=== PATIENT | female | born 1935 | race Caucasian/White ===

== ENCOUNTER 2018-01-10 15:35 | Inpatient (IN) | payer OTHER ==
[2018-01-10] MEDS ORDERED: TUSSIONEX PENNKINETIC SUSP PO PRN (17:14)
[2018-01-10 18:58] LABS: BASOPHILS # (AUTO) 0.1 X10^3/uL (0.0-0.1); BASOPHILS % (AUTO) 1.1 % (0.2-1.0); EOSINOPHILS # (AUTO) 0.2 x10^3/uL (0.0-0.2); EOSINOPHILS % (AUTO) 3.3 % (0.9-2.9); HEMATOCRIT 34.4 % (36.0-47.0); HEMOGLOBIN 11.9 g/dL (12.0-16.0); LYMPHOCYTES # (AUTO) 1.5 X10^3/uL (1.3-2.9); LYMPHOCYTES % (AUTO) 22.4 % (21.0-51.0); MEAN CORPUSCULAR HEMOGLOBIN 31.2 pg (27.0-34.0); MEAN CORPUSCULAR HGB CONC 34.6 g/dL (33.0-35.0); MEAN PLATELET VOLUME 7.5 fL (7.4-11.0); MONOCYTES # (AUTO) 0.5 x10^3/uL (0.3-0.8); MONOCYTES % (AUTO) 7.7 % (0.0-13.0); NEUTROPHILS # (AUTO) 4.5 x10^3/uL (2.2-4.8); NEUTROPHILS % (AUTO) 65.5 % (42.0-75.0); PLATELET COUNT 273 X10^3/uL (150.0-450.0); RED BLOOD COUNT 3.82 X10^6/uL (3.5-5.4); RED CELL DISTRIBUTION WIDTH 13.2 % (11.6-16.5); WHITE BLOOD COUNT 6.8 X10^3/uL (3.6-10.0)
[2018-01-10 19:12] LABS: CALCIUM 9.1 mg/dL (8.5-10.1); CARBON DIOXIDE 27.8 mmol/L (21-32); COR CA(FOR HYPOALB) 9.9 mg/dL (8.5-10.1); CREATININE 1.44 mg/dL (0.55-1.02); TOTAL PROTEIN 7.3 g/dL (6.4-8.2)
[2018-01-10 19:18] VITALS: BMI 47.7
[2018-01-10] MEDS ORDERED: NS 1/2 1000 ML IV 1,000 ML IV ONE (19:44)
[2018-01-10] MEDS ORDERED: LEVAQUIN PREMIX IV 250 MG 250 MG/50 ML BAG IV SCH (21:00)
[2018-01-10] MEDS: NS 1/2 1000 ML IV 1,000 ML IV SCH (21:21)
[2018-01-10] MEDS: COLACE CAP 100 MG PO SCH (21:22)
[2018-01-10] MEDS: ROBITUSSIN DM PO SCH (21:22)
[2018-01-10] MEDS: MILK OF MAGNESIA PO SCH (21:23)
[2018-01-10] MEDS: DUONEB 0.5 MG/3 MG NEB SCH (21:25)
[2018-01-11] MEDS: DUONEB 0.5 MG/3 MG NEB SCH ×6 (01:27→20:25)
[2018-01-11 06:23] LABS: BASOPHILS % (AUTO) 0.6 % (0.2-1.0); EOSINOPHILS # (AUTO) 0.2 x10^3/uL (0.0-0.2); EOSINOPHILS % (AUTO) 4.1 % (0.9-2.9); HEMATOCRIT 34.1 % (36.0-47.0); HEMOGLOBIN 11.5 g/dL (12.0-16.0); LYMPHOCYTES # (AUTO) 1.6 X10^3/uL (1.3-2.9); LYMPHOCYTES % (AUTO) 27.9 % (21.0-51.0); MEAN CORPUSCULAR HEMOGLOBIN 30.8 pg (27.0-34.0); MEAN CORPUSCULAR HGB CONC 33.6 g/dL (33.0-35.0); MEAN CORPUSCULAR VOLUME 91.5 fL (80.0-100.0); MEAN PLATELET VOLUME 7.5 fL (7.4-11.0); MONOCYTES # (AUTO) 0.5 x10^3/uL (0.3-0.8); MONOCYTES % (AUTO) 8.3 % (0.0-13.0); NEUTROPHILS # (AUTO) 3.5 x10^3/uL (2.2-4.8); NEUTROPHILS % (AUTO) 59.1 % (42.0-75.0); PLATELET COUNT 248 X10^3/uL (150.0-450.0); RED BLOOD COUNT 3.73 X10^6/uL (3.5-5.4); RED CELL DISTRIBUTION WIDTH 13.3 % (11.6-16.5); WHITE BLOOD COUNT 5.9 X10^3/uL (3.6-10.0)
[2018-01-11 06:38] LABS: ALBUMIN 2.6 g/dL (3.4-5.0); CALCIUM 8.6 mg/dL (8.5-10.1); COR CA(FOR HYPOALB) 9.7 mg/dL (8.5-10.1); CREATININE 1.36 mg/dL (0.55-1.02); TOTAL PROTEIN 6.7 g/dL (6.4-8.2)
--- NOTE | 2018-01-11 07:02 | RAD ---
Examination: AP chest History: SOB Findings: Normal heart size with essentially clear lungs and pleural spaces. Slight diffuse increase in density at the left lung base may be related to overlying soft tissues. Surgical hardware is noted in the neck. Impression: No acute process identified Reported By:
[2018-01-11] MEDS: LEVAQUIN PREMIX IV 750 MG 750 MG/150 ML BAG IV SCH (10:17)
[2018-01-11] MEDS: ROBITUSSIN DM PO SCH ×4 (10:17→21:26)
[2018-01-11] MEDS ORDERED: NS 1/2 1000 ML IV 1,000 ML IV ONE ×2 (13:42→18:11)
[2018-01-11] MEDS: NS 1/2 1000 ML IV 1,000 ML IV SCH ×2 (13:44→21:26)
[2018-01-11] MEDS: NORVASC TAB 5 MG PO SCH ×2 (15:29→21:26)
--- NOTE | 2018-01-11 15:37 | MRI ---
STUDY: MRI OF THE BRAIN WITHOUT GADOLINIUM HISTORY: Abnormal brain CT following fall. Altered mental status. Technique: Multiplanar multi-sequence MRI of the brain was obtained utilizing standard departmental p rotocol. Sagittal and axial T1, axial T2, FLAIR, diffusion (DWI/ADC), GRE, and coronal T2 images thro [facility] the brain were performed. Comparison: None. Findings: The sulci, cisterns and ventricles are prominent consistent with diffuse volume loss. There are confl uent and scattered foci of T2 prolongation in the periventricular and subcortical white matter of bot h hemispheres. This is a nonspecific finding which likely represents microangiopathic change in a pat ient of this age. There is no evidence of acute territorial infarction, hemorrhage, mass, mass effect, or midline shift . There are no abnormal intra-axial or extra-axial fluid collections. The major intracranial vascular flow voids appear intact. The vertebral arteries are codominent. IMPRESSION: 1. No evidence of acute intracranial abnormality. 2. Nonspecific white matter change and volume loss. Reported By:
[2018-01-11] MEDS: COLACE CAP 100 MG PO SCH (21:26)
[2018-01-11] MEDS: MILK OF MAGNESIA PO SCH (21:26)
[2018-01-12] MEDS: DUONEB 0.5 MG/3 MG NEB SCH ×5 (00:20→12:14)
[2018-01-12] MEDS: XANAX PO PRN ×2 (01:22→10:36)
[2018-01-12] MEDS: NORCO 10/325 TAB PO PRN ×2 (02:03→10:35)
[2018-01-12 06:11] LABS: BASOPHILS % (AUTO) 0.4 % (0.2-1.0); EOSINOPHILS # (AUTO) 0.1 x10^3/uL (0.0-0.2); EOSINOPHILS % (AUTO) 0.9 % (0.9-2.9); HEMATOCRIT 31.9 % (36.0-47.0); HEMOGLOBIN 10.8 g/dL (12.0-16.0); LYMPHOCYTES # (AUTO) 1.4 X10^3/uL (1.3-2.9); LYMPHOCYTES % (AUTO) 17.3 % (21.0-51.0); MEAN CORPUSCULAR VOLUME 91.3 fL (80.0-100.0); MEAN PLATELET VOLUME 7.4 fL (7.4-11.0); MONOCYTES # (AUTO) 0.6 x10^3/uL (0.3-0.8); MONOCYTES % (AUTO) 6.8 % (0.0-13.0); NEUTROPHILS # (AUTO) 6.1 x10^3/uL (2.2-4.8); NEUTROPHILS % (AUTO) 74.6 % (42.0-75.0); PLATELET COUNT 256 X10^3/uL (150.0-450.0); RED BLOOD COUNT 3.49 X10^6/uL (3.5-5.4); RED CELL DISTRIBUTION WIDTH 13.6 % (11.6-16.5); WHITE BLOOD COUNT 8.1 X10^3/uL (3.6-10.0)
[2018-01-12 06:16] LABS: ALBUMIN 2.7 g/dL (3.4-5.0); CALCIUM 8.1 mg/dL (8.5-10.1); CARBON DIOXIDE 27.8 mmol/L (21-32); COR CA(FOR HYPOALB) 9.1 mg/dL (8.5-10.1); CREATININE 1.44 mg/dL (0.55-1.02); TOTAL PROTEIN 6.7 g/dL (6.4-8.2)
--- NOTE | 2018-01-12 07:48 | RAD ---
HISTORY: Shortness of breath Study: Single-view chest Comparison: 01/11/2018 Findings: There is again evidence of lower cervical spine surgery with metallic plate and screws present. The t rachea is midline. Heart size is normal. Stable linear scarring is present in left lung base and in t he axillary segment of the right upper lobe. No consolidation, CHF, pleural fluid or pneumothorax is seen. Osseous structures are intact. IMPRESSION: No acute abnormality. Reported By:
[2018-01-12] MEDS ORDERED: MEMANTINE HCL 28 MG PO SCH (09:00)
[2018-01-12] MEDS ORDERED: LOPRESSOR TAB 50 MG PO SCH (09:00)
[2018-01-12] MEDS: LEVAQUIN PREMIX IV 750 MG 750 MG/150 ML BAG IV SCH (10:35)
[2018-01-12] MEDS: ROBITUSSIN DM PO SCH ×3 (10:36→13:42)
[2018-01-12 13:23] VITALS: BP 146/63
[2018-01-12] MEDS ORDERED: LIPITOR TAB 20 MG PO SCH (21:00)
--- NOTE | 2018-01-18 09:37 | DR.UPDATE ---
H&P Update History and Physical Update: History and Physical reviewed and patient examined. Changes noted: Yes with the following: PRESENTED TO THE OFFICE TODAY WITH COMPLAINTS OF PRODUCTIVE COUGH, CONGESTION, AND SHORTNESS OF BREATH. FAMILY ALSO REPORTED THAT PATIENT HAS HAD ALTERED MENTAL STATUS AND HAS FALLEN SEVERAL TIMES AT HOME. THEY REPORT THAT PATIENT DID HIT HER HEAD ON ONE OCCASION OVER THE WEEKEND. AN OUTPATIENT CHEST XRAY REVEALED MILD BRONCHITIS AND SLIGHT PNEUMONIA OF RIGHT UPPER LOBE. MILD EMPHYSEMA. A BRAIN CT REVEALED SUBTLE, ILL DEFINED LOW ATTENUATION WITHIN THE LEFT OCCIPITAL LOBE, POSSIBLY REFLECTING CHRONIC ISCHEMIA. HOWEVER, AN ACUTE OR EARLY SUBACUTE INFARCT COULD HAVE THIS APPEARANCE WELL, AND CORRELATION WITH MRI OF THE BRAIN IS RECOMMENDED. GLOBAL ATROPHY AND CHRONIC SMALL VESSEL DISEASE. PATIENT WAS ADMITTED FOR FURTHER EVALUATION AND TREATMENT. SHE WAS STARTED ON THE PNEUMONIA PROTOCOL. WE PLAN TO OBTAIN A BRAIN MRI IN THE MORNING.
== END 2018-01-12 13:56 | disposition home or self-care (01) | DRG 195 ==
LOC: MED/SURG 15:35
PROVIDERS: ADMIT Internal Medicine; ATTEND Internal Medicine
DX: J18.8 Other pneumonia, unspecified organism (principal); J20.8 Acute bronchitis due to other specified organisms; R40.4 Transient alteration of awareness; R06.02 Shortness of breath; F03.90 Unspecified dementia, unspecified severity, without behavioral disturbance, psychotic disturbance, mood disturbance, and anxiety; E11.65 Type 2 diabetes mellitus with hyperglycemia; E78.2 Mixed hyperlipidemia; R92.8 Other abnormal and inconclusive findings on diagnostic imaging of breast; R32 Unspecified urinary incontinence; R29.6 Repeated falls; Z91.81 History of falling
CPT/HCPCS: 36415; 70551; 71045; 80053; 85025; 87040; 87070; 87205; 94640; 94760; A4222; J1956; J7620